=== PATIENT | female | born 1950 | race Hispanic/Latino ===

== ENCOUNTER 2017-05-06 07:51 | Day surgery (SDC) | payer MEDICARE ==
[2017-05-03 09:07] VITALS: BMI 28.3
[~2017-05-06 07:51] MED LIST: Carbachol 0.01% IO ONE; Chondroitin/Hyaluronate Opth Syringe KIT (0.55 ml-0.5 ml) IO ONE; Hyaluronidase Human, Recombi 150 U/ML VIAL ONE; Lactated Ringer's 500 ML IV ONE; Lidocaine 2% Inj (20ml) ONE; Phenylephrine 2.5% Opht Soln OD SCH; Povidone Iodine Ophthalmic 5% Soln ONE; Tetracaine 0.5% Ophth (OR ONLY) ONE; Tobramycin/Dexamethasone OPHT OINT ONE; Tropicamide 1% Opht SOLUTION OD SCH
[2017-05-06] MEDS ORDERED: Lactated Ringer's 500 ML IV ONE (08:41)
[2017-05-06 08:44] VITALS: RESP 20; TEMP 97.6
[2017-05-06] MEDS ORDERED: Midazolam 2 MG/2 ML VIAL ONE (10:02)
[2017-05-06 11:44] VITALS: O2SAT 98
[2017-05-06 11:47] VITALS: BP 128/76; PULSE 76
--- NOTE | 2017-05-07 11:54 | OP ---
PROCEDURE DATE: 05/06/2017 PREOPERATIVE DIAGNOSIS: Nuclear cataract, right eye. POSTOPERATIVE DIAGNOSIS: Nuclear cataract, right eye. OPERATIVE PROCEDURE: Cataract extraction with lens implant, right eye for nuclear mature cataract. ATTENDING: Dr. Yoan Acosta ANESTHESIA: Retrobulbar block. COMPLICATIONS: None. ESTIMATED BLOOD LOSS: 0. PROCEDURE: The patient was brought to the operating room and properly identified. Anesthesia staff a dministered intravenous sedation and retrobulbar block was given to the surgical eye. The patient wa s then prepped and draped in the usual sterile fashion. Attention was turned to the surgical eye. A lid speculum was placed into interpalpebral fissure. Si tting temporally two paracentesis incisions were made. The anterior chamber was filled with viscoela stic and a triplanar clear corneal incision was made. Using a cystitome anterior capsular leaflet wa s created. Utrata forceps were used to create a continuous curvilinear capsulorrhexis. Balanced frandy t solution on a cannula was used to hydrodissect and hydrodelineate the lens. The lens was then phac oemulsified with no complications. Automated irrigation and aspiration was used to remove the cortex . Viscoelastic was used to deepen the anterior chamber. The lens was placed in the capsular bag. A utomated irrigation and aspiration was used to remove the viscoelastic. The anterior chamber was lois led with Miochol. The wounds were hydrated with balanced salt solution. There was noted to be no le ak at the end of the case and the lens was well positioned. The lid speculum was removed. The eye w as given antibiotics and steroids and covered with a patch and shield. The patient was returned to [facility] recovery room in stable condition. Yoan Acosta MD cc: [id number] TT: 05/07/2017 11:54:18 en
== END 2017-05-06 11:15 | disposition home or self-care (01) ==
LOC: C.SDS 07:51
PROVIDERS: ATTEND Ophthalmology
DX: H25.11 Age-related nuclear cataract, right eye (principal)
CPT/HCPCS: 66984; J2250; J3010; J3470; J7120

== ENCOUNTER 2017-05-27 06:20 | Day surgery (SDC) | payer MEDICARE ==
[2017-05-03 09:11] VITALS: BMI 28.3
[~2017-05-27 06:20] MED LIST changes: -Carbachol 0.01% IO ONE; -Chondroitin/Hyaluronate Opth Syringe KIT (0.55 ml-0.5 ml) IO ONE; -Hyaluronidase Human, Recombi 150 U/ML VIAL ONE; -Lidocaine 2% Inj (20ml) ONE; -Phenylephrine 2.5% Opht Soln OD SCH; +Phenylephrine 2.5% Opht Soln OS SCH; -Povidone Iodine Ophthalmic 5% Soln ONE; -Tetracaine 0.5% Ophth (OR ONLY) ONE; -Tobramycin/Dexamethasone OPHT OINT ONE; -Tropicamide 1% Opht SOLUTION OD SCH; +Tropicamide 1% Opht SOLUTION OS SCH
[2017-05-27] MEDS ORDERED: Lactated Ringer's 500 ML IV ONE (07:00)
[2017-05-27] MEDS ORDERED: Povidone Iodine Ophthalmic 5% Soln ONE (07:33)
[2017-05-27] MEDS ORDERED: Tetracaine 0.5% Ophth (OR ONLY) ONE (07:33)
[2017-05-27] MEDS ORDERED: Carbachol 0.01% IO ONE (07:33)
[2017-05-27] MEDS ORDERED: Chondroitin/Hyaluronate Opth Syringe KIT (0.55 ml-0.5 ml) IO ONE (07:34)
[2017-05-27] MEDS ORDERED: Hyaluronidase Human, Recombi 150 U/ML VIAL ONE (07:34)
[2017-05-27] MEDS ORDERED: Tobramycin/Dexamethasone OPHT OINT ONE (07:34)
[2017-05-27] MEDS ORDERED: Lidocaine 2% Inj (20ml) ONE (07:34)
[2017-05-27] MEDS ORDERED: Midazolam 2 MG/2 ML VIAL ONE (07:59)
[2017-05-27] MEDS ORDERED: Propofol 10 mg/ml Inj (20 ML) ONE (07:59)
[2017-05-27 11:26] VITALS: O2SAT 96
[2017-05-27 11:28] VITALS: TEMP 96
[2017-05-27 11:32] VITALS: BP 126/62; PULSE 77; RESP 20
--- NOTE | 2017-06-08 11:36 | OP ---
PROCEDURE DATE: 05/27/2017 PREOPERATIVE DIAGNOSIS: Matured cataract, left eye. POSTOPERATIVE DIAGNOSIS: Matured cataract, left eye. OPERATIVE PROCEDURE: Cataract extraction with lens implant, left eye. ATTENDING DOCTOR: Yoan Acosta MD ANESTHESIOLOGUST: COMPLICATIONS: None. ESTIMATED BLOOD LOSS: 0 mL. PROCEDURE: The patient was brought to the operating room and properly identified. Anesthesia staff administered intravenous sedation and retrobulbar block was given to the surgical eye. The patient was then prepped and draped in the usual sterile fashion. Attention was turned to the surgical eye. A lid speculum was placed into interpalpebral fissure. Sitting temporally, two paracentesis incisions were made. The anterior chamber was filled with viscoelastic and a triplanar clear corneal incision was made. Using a cystitome, anterior capsular leaflet was created. Utrata forceps were used to create a continuous curvilinear capsulorrhexis. Balanced salt solution on a cannula was used to hydrodissect and hydrodelineate the lens. The lens was then phacoemulsified with no complications. Automated irrigation and aspiration was used to remove the cortex. Viscoelastic was used to deepen the anterior chamber. The lens was placed in the capsular bag. Automated irrigation and aspiration was used to remove the viscoelastic. The anterior chamber was filled with Miochol. The wounds were hydrated with balanced salt solution. There was noted to be no leak at the end of the case and the lens was well positioned. The lid speculum was removed. The eye was given antibiotics and steroids and covered with a patch and shield. The patient was returned to the recovery room in stable condition. Yoan Acosta MD
--- NOTE | 2017-06-08 13:43 | PCM.OP ---
Operative Report - Operative Report Date of Surgery/Procedure: 05/27/17 Surgeon: Karla Milton Anesthesia/Sedation: Retrobulbar block Pre-Operative Diagnosis: Nuclear cataract left eye Post-Operative Diagnosis: Nuclear cataract left eye Procedure/Operation Description: Cataract extraction with lens implant of left eye. Please use Dr. Acosta cataract dictation number 1
== END 2017-05-27 10:31 | disposition home or self-care (01) ==
LOC: C.SDS 06:20
PROVIDERS: ATTEND Ophthalmology
DX: H25.12 Age-related nuclear cataract, left eye (principal)
CPT/HCPCS: 66984; J2250; J2704; J3010; J3470; J7120; V2632